=== PATIENT | male | born 1955 | race Caucasian/White ===

== ENCOUNTER 2016-10-11 10:51 | Day surgery (SDC) | payer BC ==
[~2016-10-11] VITALS: Ht 165.1 cm; Wt 73.1 kg
[~2016-10-11 10:51] MED LIST: CLEOCIN HC150 MG/CAP PO
[2016-10-11] MEDS ORDERED: GLUCOPHAGE1000 MG PO (11:57)
[2016-10-11] MEDS ORDERED: ZESTRIL 20MG TA20 MG PO (11:58)
[2016-10-11] MEDS ORDERED: PRAVACHOL 40MG40 MG PO (12:00)
[2016-10-11] MEDS ORDERED: ASPIRIN 81M81 MG/TA2 PO (12:00)
[2016-10-11] MEDS ORDERED: ROXICODONE 55 MG/TAB PO (12:04)
[2016-10-11 12:08] VITALS: BP 114/78; PULSE 91; TEMP 98.3
[2016-10-11 14:41] VITALS: BP 117/72; PULSE 81; TEMP 98
[2016-10-11 14:56] VITALS: BP 98/67; PULSE 83
[2016-10-11 15:11] VITALS: BP 106/78; PULSE 82
[2016-10-11 15:26] VITALS: BP 107/74; PULSE 87
== END 2016-10-11 15:40 | disposition home or self-care (01) ==
LOC: SDCO 10:51
DX: C01 Malignant neoplasm of base of tongue (principal); R59.9 Enlarged lymph nodes, unspecified; I10 Essential (primary) hypertension; E11.9 Type 2 diabetes mellitus without complications; M19.90 Unspecified osteoarthritis, unspecified site; G47.33 Obstructive sleep apnea (adult) (pediatric); F17.290 Nicotine dependence, other tobacco product, uncomplicated; K21.9 Gastro-esophageal reflux disease without esophagitis; Z79.84 Long term (current) use of oral hypoglycemic drugs; Z83.3 Family history of diabetes mellitus
CPT/HCPCS: C1788; J0690; J1644; J2250; J2405; J2704; J2765; J3010; J7030

== ENCOUNTER 2016-10-21 08:58 | Outpatient (RCR) | payer BC ==
[~2016-10-21 08:58] MED LIST changes: +ASPIRIN 81M81 MG/TA2 PO; +GLUCOPHAGE1000 MG PO; +PRAVACHOL 40MG40 MG PO; +ROXICODONE 55 MG/TAB PO; +ZESTRIL 20MG TA20 MG PO
== END 2017-01-19 | disposition still patient (30) ==
LOC: WSST
DX: C01 Malignant neoplasm of base of tongue (principal); R13.12 Dysphagia, oropharyngeal phase; I10 Essential (primary) hypertension

== ENCOUNTER 2017-04-13 13:04 | Outpatient (RCR) | payer BC | END 2017-04-27 09:47 | disposition home or self-care (01) | LOC: WSST 13:04 | DX: C01 Malignant neoplasm of base of tongue (principal); I10 Essential (primary) hypertension; Z92.21 Personal history of antineoplastic chemotherapy ==